=== PATIENT | male | born 1990 | race Caucasian/White ===

== ENCOUNTER 2017-12-04 18:25 | Emergency (ER) | payer BC, OTHER ==
[2017-12-04] MEDS: LIDOCAINE 1%/EPI 30 ML INJ INJ (22:33)
[2017-12-04] MEDS: DIPHTH/TET/ACEL PERTUSS (ADULT) 0.5 ML VIAL IM* (22:35)
== END 2017-12-04 23:31 | disposition home or self-care (01) ==
LOC: FTE 18:25
DX: S01.81XA Laceration without foreign body of other part of head, initial encounter (principal); W01.198A Fall on same level from slipping, tripping and stumbling with subsequent striking against other object, initial encounter; Y92.9 Unspecified place or not applicable
CPT/HCPCS: 12013; 90471; 90715; 99283-25